=== PATIENT | male | born 1945 | race Caucasian/White ===

== ENCOUNTER 2017-01-06 05:47 | Day surgery (SDC) | payer OTHER, BC ==
[~2017-01-06] VITALS: Ht 175.3 cm; Wt 93.4 kg
--- NOTE | ~2017-01-06 | O ---
[facility] [place] [address] OPERATIVE REPORT Name: SELVIN SIDDIQUI Room #: DEP [facility] [place] M..#: [id number] Admission: 01/06/17 Attend Phys: Samuel Hebert MD Discharge: 01/06/17 Date of : 45 Report #: [id number] THIS REPORT FOR: //name// CC: Jean Hawkins DATE OF SERVICE: 01/06/2017 PREOPERATIVE DIAGNOSIS: Basal cell carcinoma of right upper lid, medial canthus. POSTOPERATIVE DIAGNOSIS: Basal cell carcinoma of right upper lid, medial canthus. PROCEDURE: Excision of basal cell carcinoma of right upper lid, medial canthus with frozen section control of margins and flap repair of defect. SURGEON: Samuel Hebert M.D. MINING TEACHER: None. ANESTHESIA: MAC. COMPLICATIONS: None. INDICATIONS FOR SURGERY: This pleasant 71-year-old gentleman has a biopsy proven basal cell carcinoma in his medial canthus and upper lid on the right side. He presents today for excision of residual tumor with frozen sections and subsequent repair of that defect. Informed consent was obtained to include but not limited to the potential risk for loss of vision, bleeding, infection, failure to improve the problem, the potential need for further surgery or treatment. DESCRIPTION OF PROCEDURE: The patient was taken to the operating room where 2% Xylocaine with epinephrine mixed with equal parts of 0.75% Marcaine with Wydase was administered transcutaneously to the right upper lid and the right medial canthus in addition to the glabella. The patient was subsequently prepped and draped in the usual sterile fashion. A skin marking pen was then utilized to outline the lesion including a small quantity of redundant tissue around its margins. The incisions were then made with a 15 blade and the specimen subsequently oriented on a drawing for the waiting pathologist. Hemostasis was achieved in the field with diligent pinpoint monopolar cautery. The pathologist snap froze that tissue and found that the margins were clear on the first sections. [address] [address] OPERATIVE REPORT Name: SELVIN SIDDIQUI Room #: DEP [facility] [place] M.R.#: [id number] Admission: 01/06/17 Attend Phys: Samuel Hebert MD Discharge: 01/06/17 Date of : 45 Report #: [id number] A myocutaneous flap was then developed for the repair of the defect. Hemostasis was then re-achieved. The flap was then advanced and closed with interrupted 6-0 plain gut sutures. The wounds were then cleaned and dressed with erythromycin ophthalmic ointment. The patient subsequently transported to the recovery area having tolerated the procedure well with no anesthetic or operative complications being noted. <ELECTRONICALLY SIGNED> By: Samuel Hebert MD 01/13/17 0614 [id number] 1520 Samuel Hebert MD /nt
--- NOTE | ~2017-01-06 | S ---
[facility] [place] [address] SURGICAL PATH RPT PROCEDURE Name: SELVIN SIDDIQUI [place] #: [place] [facility] [place].R.#: [id number] Admission: 01/06/17 Date of : 45 Discharge: 01/06/17 Report #: [id number] Path Case #: [id number] PATHOLOGY REPORT COLLECTION DATE: 01/06/2017 RECEIVED DATE: 01/06/2017 SUBMITTING PHYS: Dr. Samuel Hebert OTHER PHYS: Dr. Elisa Garcia SPECIMEN(S) RECEIVED: A.Basal cell carcinoma right medial canthus * * * * * * * * * * * * FINAL DIAGNOSIS: "Basal cell carcinoma, right medial canthus", excision: - Skin and subcutaneous tissue with previous biopsy site changes and focal actinic changes; no residual basal cell carcinoma identified. (CLW:chaparro; d/t: 01/08/2017) PATHOLOGIST: Luba Peacock M.D. REPORT ELECTRONICALLY SIGNED BY: Luba Peacock M.D. DATE/TIME: 01/08/2017 13:47 * * * * * * * * * * * * GROSS PATHOLOGY: The specimen is received fresh from the OR labeled "Selvin Siddiqui and basal cell carcinoma right medial canthus". It consists of an oriented ellipse of figueroa-white skin and subcutaneous tissue measuring 1.1 x 0.5 cm. It is excised to a depth of 0.4 cm. Superior is designated 12:00. The margins are inked as follows: 12-6:00 - blue, 6-9:00 - black and 9-12:00 - orange. The figueroa-white skin is unremarkable. The specimen is serially sectioned and submitted for one frozen section. The frozen section is then submitted as A1. CLW/db FROZEN SECTION DIAGNOSIS: FSA1. "Basal cell carcinoma right medial canthus": - Previous biopsy site changes; margins free of invasive tumor. The case is discussed with Dr. Samuel Hebert in the operating room and a written report is placed in the patient's chart. Testing performed by Dr. Peacock at [facility] at [facility] [address] [place] [address] CLINICAL HISTORY: [address] [address] SURGICAL PATH RPT PROCEDURE Name: SELVIN SIDDIQUI Room #: DEP [facility].#: [id number] Admission: 01/06/17 Date of : 45 Discharge: 01/06/17 Report #: [id number] Path Case #: [id number] BCCA right medial canthus INITIAL CPT CODE(S): A; 85578, 10207 Professional services performed by [facility] [address] [place] [address] Technical services performed by [facility] at [address] [place] [address], [facility] [address] [address]. [facility] [place] [address] PHONE: [phone] DIRECTOR: Altaf Chris M.D. * * * END OF REPORT * * *
[~2017-01-06 05:47] MED LIST: ASPIR 8181 MG PO; CENTRUM SILVER1 EAC4 PO; LIPITOR80 MG PO; LOPRESSOR50 PO; NORVASC10 MG PO; OMEPRAZOLE40 MG PO; PLAVIX 75 MG TA75 M1 PO; PRINIVIL40 MG PO; ZANTAC 150MG T150 MG PO
[2017-01-06 14:02] VITALS: BP 118/58
== END 2017-01-06 15:43 | disposition home or self-care (01) ==
LOC: TBA 05:47 → OR 05:47
DX: C44.112 Basal cell carcinoma of skin of right eyelid, including canthus (principal)
CPT/HCPCS: 50010; 50101; 50398; 51636; 56531; 62110; 62850; 70005